=== PATIENT | male | born 1955 | race Caucasian/White ===

== ENCOUNTER 2020-09-11 01:16 | Outpatient (CLI) | payer OTHER, SELFPAY ==
[2020-09-13 21:27] LABS: COVID-19 RT-PCR Result NEGATIVE (Negative)
== END 2020-09-11 01:36 ==
PROVIDERS: PCP Emergency Medicine; Visit Provider Podiatrist
DX: Z11.59 Encounter for screening for other viral diseases (principal); Z01.818 Encounter for other preprocedural examination
CPT/HCPCS: U0003

== ENCOUNTER 2020-09-14 07:24 | Day surgery (SDC) | payer OTHER, SELFPAY ==
[2020-09-14 07:35] VITALS: BP 145/83; PULSE 77; RESP 18; TEMP 36.9; O2SAT 98
--- NOTE | 2020-09-14 08:09 | W.PM.HP.N ---
Date of service: 09/14/20 Time of Service: 08:09 History of Present Illness History of Present Illness Chief Complaint: Painful left second hammertoe deformity Narrative: 64-year-old white male who sustained an injury while at work, getting his foot caught in a floor drain, subsequently damaged the joint capsule of the second MPJ developing a dorsal dislocation of the second toe. He has constant pain with weightbearing and difficulty wearing shoe gear. He understands the permanency of the procedure and the fact that his work intensive reconstruction of his foot was a treatment option. He has no known drug allergies Current meds include lisinopril amlodipine ibuprofen PMH is remarkable for hypertension Head normocephalic Eyes PERRLA Hearing is adequate the airway looks acceptable midline Heart had regular rate and rhythm, no gallops rubs or murmurs noted Lungs Abdomen is soft, bowel sounds were appreciated Peripheral pulses are palpable at the ankle graded 2/4 bilaterally minus 2 out of 5. No peripheral edema or is appreciated. Skin is grossly intact. Pedal hair is noted. Feet are warm to the touch. Muscle groups of 5 out of 5 bilaterally. Skeletal exam is remarkable for a moderate left HAV deformity and a dorsally dislocated second toe at the MPJ with semirigid contracture at the PIPJ level. There is pain to palpation at the second MPJ which is poorly reducable Neurologically he is grossly intact no deficits were noted Impressions: Dorsally dislocated left second hammertoe deformity symptomatic as above. Plan: Amish is being brought to the OR for surgical amputation of the left second toe at the MPJ level. He fully understands the permanency of the procedure. He understands that the bunion deformity will progress until it touches the third toe medially. He understands that he may need to use silicon pillows between the 2 toes to maintain comfort. He does understand that reconstruction was possibe but he refused those options. All questions have been answered in detail. Informed consent has been obtained. [facility] Medical History (Updated 09/14/20 @ 07:32 by Mercedez Joel) Hypertension Surgical History Appendectomy (~1985) Colonoscopy - MAC 08/16/10 Family History Mother Personal history of malignant neoplasm Father Heart disease Social History Smoking/Tobacco Use Status: Former Tobacco Use Smoking risk assessment performed?: Yes Alcohol Intake: never Substance use type: does not use Do you feel safe at home: Yes Do you feel safe in your relationship?: Yes Meds Home Medications and Allergies Home Medications Medication Instructions Recorded Confirmed Type nicotine [Nicoderm Cq] 21 mg TRANSDERMAL DAILY #30 patch 11/29/14 09/14/20 History sildenafil [Viagra] 100 mg PO PRN #5 tab 10/30/15 09/14/20 History amlodipine 5 mg tablet 5 mg PO DAILY #90 tab 06/04/18 09/14/20 Rx lisinopril 10 mg tablet 10 mg PO DAILY #90 tab 06/04/18 09/14/20 Rx ibuprofen 600 mg tablet 600 mg PO BID as needed only #100 06/05/20 09/14/20 Rx tab-cap amlodipine 5 mg tablet 5 mg PO DAILY #90 tab-cap 06/20/20 09/14/20 Rx lisinopril 10 mg tablet 10 mg PO DAILY #90 tab-cap 06/20/20 09/14/20 Rx Allergies Allergy/AdvReac Type Severity Reaction Status Date / Time No Known Allergies Allergy Unverified 09/14/20 07:21 Results Last Vital Signs Temp 36.9 C 09/14/20 07:35 Pulse 77 09/14/20 07:35 Resp 18 09/14/20 07:35 BP 145/83 H 09/14/20 07:35 Pulse Ox 98 09/14/20 07:35 COVID-19 Screening Have you, or household traveled for leisure in last 14 days?: No Had IN PERSON contact w/suspected or confirmed C-19 person: No
[2020-09-14] MEDS: Lactated Ringers 1,000 ML 80 ML IV (08:12)
[2020-09-14] MEDS: ceFAZolin 1 GM/50 ML BAG IVPB (08:39)
[2020-09-14] MEDS: Lidocaine 1% Pres-Free 5 ML VIAL (08:56)
[2020-09-14] MEDS: Bupivacaine 0.5% Pres-Free 30 ML VIAL (08:56)
--- NOTE | 2020-09-14 09:27 | W.PM.DSUDISC ---
Discharge Plan Disposition Patient Disposition: HOME Condition: Good Discharge Details Reason For Visit: amputation of left 2nd toe Attending Provider: Carlos Pacheco Primary Care Provider: Parish Hyman Home Meds and New Rx's Prescriptions: No Action nicotine [Nicoderm CQ] 1 EACH patch 24 hour 21 mg Transdermal DAILY Qty: 30 RF: 6 sildenafil [Viagra] 100 MG tablet 100 mg PO PRN Qty: 5 RF: 12 lisinopril 10 mg tablet 10 mg PO DAILY Qty: 90 RF: 3 amlodipine 5 mg tablet 5 mg PO DAILY Qty: 90 RF: 3 ibuprofen 600 mg tablet 600 mg PO BID as needed only Qty: 100 RF: 3 amlodipine 5 mg tablet 5 mg PO DAILY Qty: 90 RF: 3 lisinopril 10 mg tablet 10 mg PO DAILY Qty: 90 RF: 3 Discharge Instructions Activity:: Elevate Remove Dressings/Wound Care:: Do Not Remove Shower/Bathe:: Cover Diet:: Normal Diet Discharge Orders Discharge Orders: Discharge Order (Routine); Ordered 09/14/20 Ordered By: Carlos Pacheco DS: Diagnosis Discharge Diagnosis (1) Hammertoe of left foot: Status: Acute
--- NOTE | 2020-09-14 09:30 | W.PM.OP ---
Date of service: 09/14/20 Time of Service: 09:30 Operative Note Operative Note DATE OF PROCEDURE: 09/14/20 PRE-OP DIAGNOSIS: Left second hammertoe deformity POST-OP DIAGNOSIS: same PROCEDURE: Amputation left second toe through the metatarsal phalangeal joint SURGEON: Carlos Pacheco ANESTHESIA: MAC ESTIMATED BLOOD LOSS: 1 PATHOLOGY: none sent TOURNIQUET TIME: 20 COMPLICATIONS: None Patient was transported to: same day Patient's condition: stable Indications: 64-year-old white male with a chronically painful left second hammertoe which has dorsally dislocated through the metatarsal phalangeal joint following a injury at work. He understands risk and complications of surgery pertaining to pain, scarring, infection, progression of his bunion deformity, potential for additional and/or revision procedures. No promises were made to final outcome of surgery. Informed consent has been obtained. Procedure Description: Amish Was brought to the operative suite, placed in the supine position with the left foot prepped and draped in the usual sterile podiatric fashion. Anesthesia was achieved including digital block left second toe 10 cc 50: 50 mixture, 1% lidocaine plain, 0.5% Marcaine plain. Foot was exsanguinated and a well-padded ankle tourniquet inflated to 250 mmHg. Attention was directed to the left second toe where incisions were placed starting dorsally just distal to the metatarsal phalangeal joint and extending medially and laterally around the toe so as to afford an amputation. The incisions were carried down to the plantar aspect of the toe at the base of the proximal phalanx. Dorsal flaps were raised and the extensor tendon severed, dissection was carried down along the base of the proximal phalanx to the metatarsal phalangeal joint with a #15 scalpel blade, the joint capsule was incised. Attention was now directed the plantar aspect of the toe with medial lateral incisions were completed a plantar flap was raised, the flexor tendon was severed and the scalpel brought to the base of the proximal phalanx the scalpel was then advanced proximally and the joint capsule released at the metatarsophalangeal joint. With a #15 scalpel the remaining soft tissue around the metatarsal phalangeal joint was released and the toe was removed from the surgical field. Degenerative changes of the articular surfaces were noted otherwise no abnormalities were appreciated from the gross deformity of the digit. Copious irrigation was performed. The deep layer was closed with simple interrupted suture 3-0 Vicryl and the skin was coapted with simple interrupted sutures of 3-0 nylon. 4 mg dexamethasone phosphate was infused deeply within the wound. Xeroform fluff Kerlix dressings applied. Tourniquet was released at 20 minutes with vascularity returning immediately to the left foot. Amish left the OR with vital signs stable, sharp and sponge counts were correct. He will be followed by myself in the office next week.
[2020-09-14] MEDS: Dexamethasone 4 MG/ML VIAL (09:35)
--- NOTE | 2020-09-14 09:38 | PDOC.DSDIS_ITS ---
Discharge Plan Disposition Patient Disposition: HOME Condition: Good Discharge Details Reason For Visit: amputation of left 2nd toe Attending Provider: Carlos Pacheco Primary Care Provider: Parish Hyman Home Meds and New Rx's Prescriptions: New hydrocodone-acetaminophen [[place]] 5-325 mg tablet 1 tab PO Q6H PRN (Reason: pain) Qty: 9 RF: 0 ibuprofen 600 mg tablet 600 mg PO Q6H PRN (Reason: pain andinflammation) Qty: 60 RF: 1 Continued nicotine [Nicoderm CQ] 1 EACH patch 24 hour 21 mg Transdermal DAILY Qty: 30 RF: 6 sildenafil [Viagra] 100 MG tablet 100 mg PO PRN Qty: 5 RF: 12 lisinopril 10 mg tablet 10 mg PO DAILY Qty: 90 RF: 3 amlodipine 5 mg tablet 5 mg PO DAILY Qty: 90 RF: 3 ibuprofen 600 mg tablet 600 mg PO BID as needed only Qty: 100 RF: 3 amlodipine 5 mg tablet 5 mg PO DAILY Qty: 90 RF: 3 lisinopril 10 mg tablet 10 mg PO DAILY Qty: 90 RF: 3 Discharge Instructions Stand Alone Forms: Jims Instructions-DSU, Jacqueline Jerez (DSU) Activity:: Elevate Remove Dressings/Wound Care:: Do Not Remove Shower/Bathe:: Cover Diet:: Normal Diet Discharge Orders Discharge Orders: Discharge Order (Routine); Ordered 09/14/20 Ordered By: Carlos Pacheco DS: Diagnosis Discharge Diagnosis (1) Hammertoe of left foot: Status: Acute
[2020-09-14 09:58] VITALS: BP 165/95; PULSE 76; RESP 18; TEMP 36.3; O2SAT 97
== END 2020-09-14 10:27 | disposition home or self-care (01) ==
PROVIDERS: PCP Emergency Medicine; Visit Provider Podiatrist
PROC: (CPT 28285; principal; 2020-09-14 09:00)
DX: M20.42 Other hammer toe(s) (acquired), left foot (principal); I10 Essential (primary) hypertension
CPT/HCPCS: 28285; 99235; J0690; J1100; J2001; J2405